=== PATIENT | male | born 1965 | race Caucasian/White ===

== ENCOUNTER → 2020-03-30 | Day surgery (SDC) | payer BC, OTHER ==
[~2020-03-30] MED LIST: ATOR40TA59 PO; ERGO2000 PO; IV RINGERS,LACTATED 1000ML 1,000 ML IV SCH; LIDOCAINE 2% PF 5 ML VIAL. ONE; NAPR500T8 PO; PANT20TA2 PO; PROPOFOL 10 MG/ML (20ML) VIAL. IV ONE
[2020-03-30 10:30] VITALS: BP 150/82
--- NOTE | 2020-03-30 11:05 | HP ---
ADMIT DATE: 03/30/2020 REFERRING PHYSICIAN: Hugo Prabhakar MD REASON FOR VISIT: Menjivar's. HISTORY OF PRESENT ILLNESS: A 55-year-old male with past medical history significant for Menjivar's, kidney stones, arthritis as well as hyperlipidemia, is seen for surveillance EGD. EGD is recommended for surveillance. No dysphagia or odynophagia is noted. No bleeding. Weight and appetite are stable. He is otherwise without additional complaints. PAST MEDICAL HISTORY: Menjivar's and hyperlipidemia and osteoarthritis. ALLERGIES: PENICILLIN. MEDICATIONS: Include atorvastatin, ergocalciferol, Naprosyn, and pantoprazole. FAMILY HISTORY: Significant for lupus and RA. PAST SURGICAL HISTORY: None. REVIEW OF SYSTEMS: Per records. PHYSICAL EXAMINATION: GENERAL: Reveals a well-nourished, well-developed male. VITAL SIGNS: Temperature is 98.2, pulse 87, respirations 20. LUNGS: Clear. CARDIOVASCULAR: Reveals an S1, S2 without S3, S4 or appreciable murmur. ABDOMEN: With a soft abdomen, normal bowel sounds, without appreciable hepatosplenomegaly. IMPRESSION: Menjivar's surveillance exam is recommended at this time. Risks and benefits of procedure including risk of hemorrhage and perforation. Operation have been discussed and is willing to proceed. I would like to thank Dr. Hugo Prabhakar for allowing us to consult and participate in the patient's care. CHEYANNE MUÑOZ MD DR: EMERY/ángel JOB#: [id number] / [id number] HUGO Hernandez MD
--- NOTE | 2020-04-03 00:06 | PATHOLOGY ---
[facility] Accession Number: [id number] . 01 Material submitted: . esophagus - DISTAL ESOPHAGUS BIOPSY. Modifiers: distal . 01 Clinical history: . HX DUMONT'S . 02 Diagnosis: "Distal esophagus BX", biopsy: - Esophageal squamous mucosa and gastric cardiac-type mucosa with reactive changes, chronic inflammation and intestinal metaplasia, consistent with Dumont's mucosa; no dysplasia seen. (CLW:[facility] [place]; 04/02/2020) [facility] 04/02/2020 1647 Local . 02 Comment: Clinical and endoscopic correlation is required. (CLW:principal scientist; 04/02/2020) . 02 Electronically signed: . Akua Anders MD, Pathologist NPI- [id number] . 01 Gross description: . Received in formalin labeled "Vipul James, distal esophagus BX" are multiple fox-brown soft tissue fragments measuring in aggregate 1.0 x 0.4 x 0.1 cm. The specimen is submitted entirely in A1. ([facility] [place] 04/01/2020) [facility] 04/01/2020 1110 Local . 02 Pathologist provided ICD-10: K20.90 . 02 CPT . 843421 Specimen Comment: A courtesy copy of this report has been sent to [phone], [phone] Specimen Comment: [id number] Specimen Comment: Report sent to / DR ENRIQUE Performed at: 01 [facility] [address], [place] [id number] MD Sav Pike MD Phone: [phone] Performed at: 02 [facility] [address], [place] [id number] MD Alvarez Scott MD Phone: [phone]
== END | disposition home or self-care (01) ==
LOC: ENDOS 08:11
PROVIDERS: ATTEND Internal Medicine Gastroenterology
DX: K22.70 Barrett's esophagus without dysplasia (principal); K29.50 Unspecified chronic gastritis without bleeding; K31.89 Other diseases of stomach and duodenum; E78.00 Pure hypercholesterolemia, unspecified; M19.90 Unspecified osteoarthritis, unspecified site; K21.9 Gastro-esophageal reflux disease without esophagitis; Z79.899 Other long term (current) drug therapy; Z98.890 Other specified postprocedural states; Z72.89 Other problems related to lifestyle; Z88.0 Allergy status to penicillin
CPT/HCPCS: 43239; J2704